=== PATIENT | female | born 1995 | race Two or more races ===

== ENCOUNTER 2021-05-11 16:10 | Observation (INO) | payer BC ==
[~2021-05-11] VITALS: Ht 167.6 cm; Wt 72.6 kg
[2021-05-11] MEDS ORDERED: PREN-96 PO (16:47)
[2021-05-11] MEDS ORDERED: PROGSUP3 VA (17:33)
[2021-05-11] MEDS ORDERED: NIF10C GT (17:33)
== END 2021-05-11 19:56 | disposition home or self-care (01) ==
LOC: LDRP 16:10
PROVIDERS: ADMIT Obstetrics & Gynecology; ATTEND Obstetrics & Gynecology
DX: O36.8130 Decreased fetal movements, third trimester, not applicable or unspecified (principal); Z3A.36 36 weeks gestation of pregnancy
CPT/HCPCS: 59025; 76818; 81002; 84112; G0378; G0379; Q0114

== ENCOUNTER 2021-05-17 09:03 | Observation (INO) | payer BC ==
[~2021-05-17 09:03] MED LIST: PREN-96 PO
== END 2021-05-17 12:00 | disposition home or self-care (01) ==
LOC: LDRP 09:57
PROVIDERS: ADMIT Obstetrics & Gynecology; ATTEND Obstetrics & Gynecology
DX: O69.81X0 Labor and delivery complicated by cord around neck, without compression, not applicable or unspecified (principal); O62.9 Abnormality of forces of labor, unspecified; Z3A.37 37 weeks gestation of pregnancy
CPT/HCPCS: 59025; 76818; 81002; 94760; G0378; G0379

== ENCOUNTER 2021-05-20 07:52 | Observation (INO) | payer BC | END 2021-05-20 15:08 | disposition home or self-care (01) | LOC: LDRP 14:04 | PROVIDERS: ADMIT Obstetrics & Gynecology; ATTEND Obstetrics & Gynecology | DX: O69.81X0 Labor and delivery complicated by cord around neck, without compression, not applicable or unspecified (principal); Z3A.37 37 weeks gestation of pregnancy | CPT/HCPCS: 59025; 76818; 81002; 94760; G0378; G0379 ==

== ENCOUNTER 2021-05-24 08:26 | Observation (INO) | payer BC ==
[2021-05-24] MEDS ORDERED: LACTATED RINGER'S 1,000 ML IV ONE (15:30)
== END 2021-05-24 16:45 | disposition home or self-care (01) ==
LOC: LDRP 14:08
PROVIDERS: ADMIT Obstetrics & Gynecology; ATTEND Obstetrics & Gynecology
DX: O69.81X0 Labor and delivery complicated by cord around neck, without compression, not applicable or unspecified (principal); O62.9 Abnormality of forces of labor, unspecified; Z3A.37 37 weeks gestation of pregnancy
CPT/HCPCS: 59025; 76818; 81002; 94760; 96360; G0378

== ENCOUNTER 2021-05-27 13:50 | Observation (INO) | payer BC | END 2021-05-27 15:50 | disposition home or self-care (01) | LOC: LDRP 13:50 | PROVIDERS: ADMIT Obstetrics & Gynecology; ATTEND Obstetrics & Gynecology | DX: O69.81X0 Labor and delivery complicated by cord around neck, without compression, not applicable or unspecified (principal); O62.9 Abnormality of forces of labor, unspecified; Z3A.38 38 weeks gestation of pregnancy | CPT/HCPCS: 59025; 76818; 81002; 94760; G0378 ==

== ENCOUNTER 2021-05-31 08:23 | Observation (INO) | payer BC | END 2021-05-31 12:50 | disposition home or self-care (01) | LOC: LDRP 11:30 | PROVIDERS: ADMIT Obstetrics & Gynecology Obstetrics; ATTEND Obstetrics & Gynecology Obstetrics | DX: O69.81X0 Labor and delivery complicated by cord around neck, without compression, not applicable or unspecified (principal); Z3A.38 38 weeks gestation of pregnancy | CPT/HCPCS: 59025; 76818; 81002; 94760; G0378; G0379 ==

== ENCOUNTER → 2021-06-01 | Outpatient (CLI) | payer BC ==
[~2021-06-01] MED LIST changes: +DOCU-94 PO; +HYDR1TAB97 PO; +IBUP600T27 PO
== END | disposition home or self-care (01) ==
LOC: OB 13:51
PROVIDERS: ATTEND Obstetrics & Gynecology
DX: Z20.822 Contact with and (suspected) exposure to COVID-19 (principal)
CPT/HCPCS: C9803; U0003

== ENCOUNTER 2021-06-03 07:52 | Inpatient (IN) | payer BC ==
[2021-06-03] VITALS (13 sets, daily range): BP systolic 107–138; BP diastolic 64–91
[~2021-06-03] VITALS: Ht 165.1 cm; Wt 88.5 kg
[~2021-06-03 07:52] MED LIST changes: -DOCU-94 PO; -HYDR1TAB97 PO; -IBUP600T27 PO
[2021-06-03] MEDS ORDERED: LACTATED RINGER'S 1,000 ML IV ONE (08:00)
[2021-06-03 08:51] LABS: Basophils # (auto) 0.1 10 ^3/uL (0-0.2); Basophils % (auto) 0.6 % (0.0-2.0); Eosinophils # (auto) 0.1 10 ^3/uL (0-0.8); Eosinophils % (auto) 0.5 % (0.0-7.0); Hematocrit 37.1 % (36.0-46.0); Hemoglobin 12.4 g/dL (12.2-16.2); Lymphocytes # (auto) 1.7 10 ^3/uL (0.4-5.4); Lymphocytes % (auto) 15.4 % (10.0-50.0); Mean Corpuscular Hemoglobin 30.4 pg (28.0-32.0); Mean Corpuscular Hgb Conc. 33.5 g/dL (32.0-36.0); Mean Corpuscular Volume 90.8 fL (80.0-100.0); Monocytes # (auto) 0.7 10 ^3/uL (0-1.3); Monocytes % (auto) 6.8 % (0.0-12.0); Neutrophils # (auto) 8.2 10 ^3/uL (1.6-8.6); Neutrophils % (auto) 76.7 % (37.0-80.0); Nucleated Red Blood Cells % 0.2 %; Red Blood Cells 4.09 10^6/uL (4.0-5.20); Red Cell Distribution Width 12.9 % (11.8-14.3); White Blood Cell 10.8 10^3/uL (4.4-10.8)
[2021-06-03 09:00] LABS: Urine Bacteria MANY /hpf (None Seen); Urine Blood Negative /uL (Negative); Urine Budding Yeast MODERATE /hpf (None Seen); Urine Hyaline Cast MOD /lpf (0 - 2); Urine Mucus FEW (None Seen); Urine WBC 41 /hpf (0 - 5); Urine WBC Clumps PRESENT /hpf (None Seen)
[2021-06-03 09:10] LABS: Albumin 2.7 g/dL (3.4-5.0); BUN/Creatinine Ratio 12.1; Calcium 8.9 mg/dL (8.5-10.1); INR 0.93 (0.9-1.15); Partial Thromboplastin Time 24.1 sec (23.6-33.0); Potassium 3.9 mmol/L (3.5-5.1)
[2021-06-03 09:11] LABS: Amphetamine Screen, Urine NEGATIVE (NEGATIVE); Barbiturate Scree,Urine NEGATIVE (NEGATIVE); Benzodiazephine Screen, Urine NEGATIVE (NEGATIVE); Cannabinoid Screen, Urine NEGATIVE (NEGATIVE); Cocaine Screen, Urine NEGATIVE (NEGATIVE); Opiate Scree,Urine NEGATIVE (NEGATIVE); Phencyclidine Screen, Urine NEGATIVE (NEGATIVE)
[2021-06-03 09:13] LABS: Bilirubin, Total 0.3 mg/dL (0.2-1.0); Total Protein 7.1 g/dL (6.4-8.2)
[2021-06-03] MEDS ORDERED: ceFAZolin 1GM/50ML 50 ML IV ONE (10:30)
[2021-06-03] MEDS: LACTATED RINGER'S 1,000 ML IV SCH ×2 (10:36→21:05)
[2021-06-03] MEDS ORDERED: TETRACAINE 1% INJ 2 ML VIAL IJ ONE (10:41)
[2021-06-03] MEDS ORDERED: MORPHINE SULF PF 2 MG/2 ML SYRG ONE (10:46)
[2021-06-03] MEDS ORDERED: fentaNYL CITRATE 100 MCG/2 ML VL ONE (10:47)
[2021-06-03] MEDS ORDERED: LACT. RINGERS/OXYTOCIN 20UNITS 1,000 ML IV ONE (12:45)
[2021-06-03] MEDS ORDERED: ONDANSETRON HCL 4 MG/2 ML VIAL IV PRN ×2 (12:45→13:00)
[2021-06-03] MEDS ORDERED: ceFAZolin 1GM/50ML 50 ML IV SCH (12:45)
[2021-06-03] MEDS ORDERED: ePHEDrine SULFATE 50 MG/ML AMP ONE (12:47)
[2021-06-03] MEDS ORDERED: NALOXONE HCL 0.4 MG/ML VIAL IV PRN (13:00)
[2021-06-03] MEDS ORDERED: HYDROmorphone HCL 2 MG/ML VL IV PRN ×2 (13:00→16:45)
[2021-06-03] MEDS ORDERED: DexAMETHasone SOD PHOS 10MG/1ML VIAL INJ IV PRN (13:00)
[2021-06-03] MEDS ORDERED: KETOROLAC TROMETH 30 MG/ML 1ML VIAL IV PRN (13:00)
[2021-06-03] MEDS ORDERED: diphenhdrAMINE HCL 50 MG/1 ML VL IV PRN (13:00)
[2021-06-03] MEDS ORDERED: NALBUPHINE HCL 10 MG/1ml INJECTION SUBCUT ONE (13:00)
[2021-06-03] MEDS ORDERED: SODIUM CITR/CITRIC ACID ORAL SOLN 30 ML PO SCH (13:00)
[2021-06-03] MEDS ORDERED: MORPHINE SULFATE 4 MG/ML SYR/VIAL IV PRN (16:45)
[2021-06-03] MEDS: ceFAZolin 1GM/50ML 50 ML IV SCH (18:00)
[2021-06-03] MEDS ORDERED: ACETAMINOPHEN IV 1000 MG/100ML (10MG/ML) IV ONE (21:00)
[2021-06-03 21:28] LABS: Basophils # (auto) 0 10 ^3/uL (0-0.2); Basophils % (auto) 0.1 % (0.0-2.0); Eosinophils # (auto) 0 10 ^3/uL (0-0.8); Eosinophils % (auto) 0.1 % (0.0-7.0); Hemoglobin 11.1 g/dL (12.2-16.2); Lymphocytes # (auto) 1.5 10 ^3/uL (0.4-5.4); Lymphocytes % (auto) 9.8 % (10.0-50.0); Mean Corpuscular Hemoglobin 29.6 pg (28.0-32.0); Mean Corpuscular Hgb Conc. 32.6 g/dL (32.0-36.0); Mean Corpuscular Volume 90.7 fL (80.0-100.0); Monocytes % (auto) 6.6 % (0.0-12.0); Neutrophils # (auto) 12.5 10 ^3/uL (1.6-8.6); Neutrophils % (auto) 83.4 % (37.0-80.0); Red Blood Cells 3.75 10^6/uL (4.0-5.20); Red Cell Distribution Width 13.1 % (11.8-14.3)
[2021-06-04] VITALS (16 sets, daily range): BP systolic 94–127; BP diastolic 53–79
[2021-06-04] MEDS: ceFAZolin 1GM/50ML 50 ML IV SCH ×2 (01:55→09:36)
[2021-06-04] MEDS ORDERED: LACTATED RINGER'S 500 ML IV ONE (03:15)
[2021-06-04] MEDS: LACTATED RINGER'S 1,000 ML IV SCH (04:09)
[2021-06-04 06:06] LABS: RPR Non Reactive (Non Reactive)
[2021-06-04 06:50] LABS: Basophils # (auto) 0 10 ^3/uL (0-0.2); Basophils % (auto) 0.2 % (0.0-2.0); Eosinophils # (auto) 0 10 ^3/uL (0-0.8); Eosinophils % (auto) 0.2 % (0.0-7.0); Hematocrit 32.2 % (36.0-46.0); Hemoglobin 10.6 g/dL (12.2-16.2); Lymphocytes # (auto) 1.5 10 ^3/uL (0.4-5.4); Lymphocytes % (auto) 10.2 % (10.0-50.0); Mean Corpuscular Hemoglobin 30.2 pg (28.0-32.0); Mean Corpuscular Hgb Conc. 32.9 g/dL (32.0-36.0); Mean Corpuscular Volume 91.7 fL (80.0-100.0); Monocytes # (auto) 1.1 10 ^3/uL (0-1.3); Monocytes % (auto) 7.4 % (0.0-12.0); Red Blood Cells 3.51 10^6/uL (4.0-5.20); Red Cell Distribution Width 12.9 % (11.8-14.3); White Blood Cell 14.6 10^3/uL (4.4-10.8)
[2021-06-04] MEDS ORDERED: BISACODYL 10 MG RECT SUPP PR PRN (08:45)
[2021-06-04] MEDS ORDERED: HYDROcodone-ACET 5/325MG TAB PO PRN (08:45)
[2021-06-04] MEDS: HYDROcodone-ACET 5/325MG TAB PO PRN ×2 (08:56→17:49)
[2021-06-04] MEDS: DOCUSATE SOD 100 MG CAP PO SCH ×2 (09:36→22:04)
[2021-06-04] MEDS: DOCUSATE CALCIUM 240 MG CAP PO SCH (09:56)
[2021-06-04] MEDS: SIMETHICONE 80 MG CHEWABLE TABLET PO SCH ×3 (13:25→22:04)
[2021-06-04] MEDS: IBUPROFEN 800 MG TAB PO PRN ×2 (13:25→22:05)
[2021-06-05 03:00] VITALS: BP 99/63
[2021-06-05] MEDS: SIMETHICONE 80 MG CHEWABLE TABLET PO SCH ×4 (06:25→22:00)
[2021-06-05] MEDS: IBUPROFEN 800 MG TAB PO PRN ×2 (06:51→15:00)
[2021-06-05 06:54] VITALS: BP 118/70
[2021-06-05] MEDS: DOCUSATE CALCIUM 240 MG CAP PO SCH (09:39)
[2021-06-05] MEDS: DOCUSATE SOD 100 MG CAP PO SCH ×2 (09:39→22:00)
[2021-06-05 10:38] VITALS: BP 124/82
[2021-06-05 15:04] VITALS: BP 137/86
[2021-06-05 19:00] VITALS: BP 115/87
[2021-06-05 23:00] VITALS: BP 115/79
[2021-06-06] MEDS: IBUPROFEN 800 MG TAB PO PRN (01:35)
[2021-06-06] MEDS: SIMETHICONE 80 MG CHEWABLE TABLET PO SCH ×2 (01:35→06:00)
[2021-06-06] MEDS: DOCUSATE SOD 100 MG CAP PO SCH (01:36)
[2021-06-06 03:00] VITALS: BP 112/83
[2021-06-06 07:00] VITALS: BP 132/87
[2021-06-06] MEDS ORDERED: HYDR1TAB97 PO (10:41)
[2021-06-06] MEDS ORDERED: IBUP600T27 PO (10:42)
[2021-06-06] MEDS ORDERED: DOCU-94 PO (10:43)
[2021-06-06 12:47] VITALS: BP 148/85
== END 2021-06-06 13:16 | disposition home or self-care (01) | DRG 788 ==
LOC: LDRP 07:52
PROVIDERS: ADMIT Obstetrics & Gynecology; ATTEND Obstetrics & Gynecology
PROC: 10D00Z1 Extraction of Products of Conception, Low, Open Approach (ICD-10-PCS; principal; 2021-06-03 11:50)
DX: O69.81X0 Labor and delivery complicated by cord around neck, without compression, not applicable or unspecified (principal); Z3A.39 39 weeks gestation of pregnancy; Z37.0 Single live birth; O99.344 Other mental disorders complicating childbirth; F41.9 Anxiety disorder, unspecified
CPT/HCPCS: 36415; 59025; 80053; 80307; 81001; 81002; 85025; 85610; 85730; 86592; 86850; 86900; 86901; 94760; 94762; 96360; 96361; 96365; 96366; G0378; J0131; J0690

== ENCOUNTER 2024-11-03 17:10 | Observation (INO) | payer BC ==
[~2024-11-03 17:10] MED LIST changes: +DOCU-94 PO; +HYDR1TAB97 PO; +IBUP-1454 PO
[2024-11-03] MEDS ORDERED: PREN1TAB71 OR (18:09)
--- NOTE | 2024-11-03 19:10 | DVH ---
LIMITED SURVEY CLINICAL HISTORY: decreased FM COMPARISON: No recent prior studies available comparison. TECHNIQUE: Real-time grayscale, color flow and M-mode imaging of the gravid uterus is performed. FINDINGS: Single living intrauterine gestation. Breech presentation. heart rate 153 beats per minute. Fundal placenta. The cervix measures approximately 3.6 cm in length and appears closed. No definite e vidence of abruption or previa at this time. Amniotic fluid is visually adequate. MVP 3.5 cm. Melt Superintendant reports good movement on real-time imaging. IMPRESSION: Single living intrauterine gestation as above.
--- NOTE | 2024-11-05 11:01 | DVHDS2 ---
Physician Discharge Progress N Final Diagnosis: dec movement Operations or Procedures: Operations or Procedures nst,sono Condition on Discharge: Good Disposition: Home Discharge Instructions: Diet: Regular Activity: No Restrictions, As Tolerated Follow Up/Referral: Please follow up with primary OBGYN as soon as possible to follow up on [facility]. Return to nearest ED/[facility] for any concerns/complaints Medications: na Follow Up Care: Specialist: 1d Discharge Statement: "Patient was advised to return to the ER or call 911 if any headaches, dizziness, shortness of breath, chest pain, abdominal pain, bleeding, fevers, or worsening of medical condition. Patient was counseled about treatment plan, medications, possible side effects, patientverbalized understanding. All questions were answered to the best of my ability. This discharge took greater then 30 minutes in planning, reviewing documentation, counseling the patient, and discussing with other team members." Visit Coding OBGYN Date of Service: Nov 03, 2024 Billing Provider: BETHEL TIJERINA DO AUDIO/VIDEO ENGINEER Common Visit Codes: [id number] INP/OBS CARE(LOW) AUDIO/VIDEO ENGINEER Procedure Codes: 59270-50- NON-STRESS TEST BETHEL TIJERINA DO Nov 05, 2024 11:01
== END 2024-11-03 19:03 | disposition home or self-care (01) ==
LOC: LDRP 17:10
PROVIDERS: ADMIT Obstetrics & Gynecology; ATTEND Obstetrics & Gynecology
DX: O36.8120 Decreased fetal movements, second trimester, not applicable or unspecified (principal); Z3A.28 28 weeks gestation of pregnancy; Z79.899 Other long term (current) drug therapy
CPT/HCPCS: 76815; 81002; G0378